=== PATIENT | female | born 1985 | race Caucasian/White ===

== ENCOUNTER 2016-12-15 13:49 | Inpatient (IN) | payer MEDICAID, OTHER ==
[~2016-12-15] VITALS: Ht 162.6 cm; Wt 71.2 kg
[2016-12-15] VITALS (13 sets, daily range): BP systolic 160–243; BP diastolic 89–148; PULSE 58–103; RESP 10–23; TEMP 97–99.1; O2SAT 93–100
--- NOTE | 2016-12-15 13:49 | NUR ---
BROUGHT IN BY ELMER Storey AND VINH SOSA, PLACED IN BED #5, TRIAGED. REPORT GIVEN TO FRANK
--- NOTE | 2016-12-15 13:50 | NUR ---
MD Gusamn at bedside.
--- NOTE | 2016-12-15 14:07 | NUR ---
Patient actively seizing at bedside, orders given to medicate for seizure control by MD Gusman.
[2016-12-15] MEDS ORDERED: LORazepam 2 MG/ML VIAL (FOR ER USE) ONE (14:12)
[2016-12-15] MEDS ORDERED: CARV12.548 PO (14:13)
[2016-12-15] MEDS ORDERED: PRED20TA PO (14:13)
[2016-12-15] MEDS ORDERED: CAT.1 PO (14:13)
[2016-12-15] MEDS ORDERED: CYTOXIN (14:13)
[2016-12-15] MEDS ORDERED: TRAM50TA92 PO (14:13)
[2016-12-15] MEDS ORDERED: FURO-149 PO (14:13)
[2016-12-15] MEDS ORDERED: LORazepam 2 MG/ML VIAL IVP ONE (14:15)
[2016-12-15] MEDS ORDERED: LORazepam 2 MG/ML VIAL (FOR ER USE) IVP ONE ×2 (14:15)
[2016-12-15 14:29] LABS: BASOPHILS # (AUTO) 0.1 K/uL (0.0-0.2); BASOPHILS % (AUTO) 0.8 % (0.0-2.0); EOSINOPHILS % (AUTO) 0.2 % (0.0-4.0); HEMATOCRIT 29.7 % (36-48); LYMPHOCYTES # (AUTO) 0.5 K/uL (1.0-5.5); LYMPHOCYTES % (AUTO) 5.3 % (20.5-51.5); MEAN CORPUSCULAR HEMOGLOBIN 34 pg (27-31); MEAN CORPUSCULAR HGB CONC 34 % (32-36); MEAN CORPUSCULAR VOLUME 99 fL (79.0-98.0); MONOCYTES # (AUTO) 0.2 K/uL (0.0-1.0); MONOCYTES % (AUTO) 2.1 % (1.7-9.3); NEUTROPHILS # (AUTO) 8.5 K/uL (1.8-7.7); NEUTROPHILS % (AUTO) 91.6 % (40.0-70.0); PLATELET COUNT (AUTO) 141 K/uL (130-430); RED BLOOD CELL COUNT(AUTO) 2.99 MIL/uL (4.2-6.2); RED CELL DISTRIBUTION WIDTH 15.1 % (9.0-15.0); WHITE BLOOD COUNT (AUTO) 9.3 K/uL (4.8-10.8)
--- NOTE | 2016-12-15 14:55 | NUR ---
Pt taken to CT scan via gurney, escorted by technical assistant, condition stable.
[2016-12-15 14:58] LABS: ANION GAP 16 (5-15); CALCIUM 9.2 mg/dL (8.4-11.0); CHLORIDE 98 mmol/L (98-107); GLUCOSE 210 mg/dL (70-99); POTASSIUM 4.9 mmol/L (3.5-5.1); SODIUM SERUM 137 mmol/L (136-145); UREA NITROGEN, BLOOD 52 mg/dL (8-21)
[2016-12-15 15:07] LABS: ALANINE AMINOTRANSFERASE 41 U/L (12-78); ASPARTATE AMINOTRANSFERASE 22 U/L (10-37); CREATININE 9.71 mg/dL (0.55-1.30); GFR AFRICAN AMERICAN 6 mL/min (>90); TOTAL BILIRUBIN 0.3 mg/dL (0.0-1.0)
[2016-12-15 15:08] LABS: ALBUMIN 3.6 g/dL (3.4-4.8); CARBAMAZEPINE (TEGRETOL) < 0 ug/mL (4-12); PHENYTOIN (DILANTIN) 0.9 ug/mL (10.0-20.0); TOTAL PROTEIN, SERUM 6.1 g/dL (6.4-8.3)
[2016-12-15 15:20] LABS: BARBITURATE, URINE NEGATIVE (NEG <=200); BENZODIAZEPINE, URINE NEGATIVE (NEG <=150); CANNABINOID, URINE NEGATIVE (NEG <=50); COCAINE, URINE NEGATIVE (NEG <=150); METHAMPHETAMINES SCREEN,URINE NEGATIVE (NEG <=500); OPIATE, URINE NEGATIVE (NEG <=100); PHENCYCLIDINE SCREEN,URINE NEGATIVE (NEG <=25); UR TRICYCLIC ANTIDEPRESSANTS NEGATIVE (NEG <=300); URINE AMPHETAMINE NEGATIVE (NEG <=500); URINE METHADONE NEGATIVE (NEG <=200); URINE OXYCODONE SCREEN NEGATIVE (NEG <=100); URINE PROPOXYPHENE SCREEN NEGATIVE (NEG <=300)
--- NOTE | 2016-12-15 15:58 | NUR ---
Pt reassessed sleeping resting comfortably arousable to verbal stimuli, MD Naseem MILLER made aware of pt B/P, orders given to medicate.
[2016-12-15] MEDS ORDERED: cloNIDine HCL 0.1 MG TABLET ONE (16:10)
[2016-12-15] MEDS ORDERED: cloNIDine HCL 0.1 MG TABLET PO ONE (16:15)
--- NOTE | 2016-12-15 16:21 | NUR ---
PT REASSESSED AFTER CLONIDINE 0.1MG PO GIVEN, MD MADE AWARE OF B/P.
--- NOTE | 2016-12-15 16:40 | NUR ---
Patient will be admitted to care of Bibi. Admitted to unit. Will go to room . Summary report printed. Report given to .
--- NOTE | 2016-12-15 17:00 | NUR ---
RECEIVED PT TO ICU BED 3 ALERT AND ORIENTED. PT STATES SHE DOESN'T FEEL GOOD AND HAS A HEADACHE. BP VERY ELEVATED 242/140'S. ROOM KEPT DARK. PT NAUSEATED. SR ON MONITOR RATE 70. LUNGS DIMINISHED BILATERALLY. 02 2L IN USE. HOB UP. NO AVILES. PULSES PALPABLE. NO EDEMA TO NOTED TO FEET. PT HAS A RIGHT CHEST PERMACATH AND STATES HER DIALYSIS DAYS ARE THURSDAY AND THURSDAY. PT HAS AN 18G IV TO LEFT AC AND SALINE LOCKED. CALL OUT TO DR PEREZ REGARDING BP.
--- NOTE | 2016-12-15 17:06 | NUR ---
CONSULT FOR DR. GRAY (DR. GONSALVES RESIDENT PROGRAMS ASSISTANT) CALLED SPOKE TO STEVENSON DIALED [phone]
--- NOTE | 2016-12-15 17:10 | NUR ---
DR PEREZ IN TO SEE PT. ORDERS LEFT. BP MEDS ORDERED.
--- NOTE | 2016-12-15 17:10 | NUR ---
CONSULT FOR DR. GALICIA CALLED SPOKE TO BRENDA DIALED [phone]
[2016-12-15] MEDS ORDERED: LORazepam 2 MG/ML VIAL IVP PRN ×2 (17:15→23:45)
[2016-12-15] MEDS ORDERED: LABETALOL 100 MG/ 20ML VIAL IVP ONE (17:15)
[2016-12-15] MEDS: hydrALAZINE HCL 20 MG/ML VIAL IVP PRN ×2 (17:34→22:00)
--- NOTE | 2016-12-15 17:34 | NUR ---
APRESOLINE IVP GIVEN FOR BP.
--- NOTE | 2016-12-15 17:37 | NUR ---
paged dr. stratton dialed [phone] spoke with nelson
--- NOTE | 2016-12-15 17:50 | NUR ---
PT VOMITED A SMALL AMT OF GREEN LIQUID. CALL OUT TO [facility] FOR NAUSEA MEDICATION.
--- NOTE | 2016-12-15 17:56 | NUR ---
SPOKE WITH DR JOHNSON. STAT DIALYSIS ORDERED. ORDER GIVEN TO BLACK TOP ROLLER. PT CONTINUES TO VOMIT AND C/O HEADACHE. STATES I DONT' FEEL GOOD. BP 125/100/ AFTER HYDRALAZINE GIVEN. DR GALICIA IN TO SEE PT.
--- NOTE | 2016-12-15 18:15 | NUR ---
TRANDATE GIVEN FOR BP. ALSO MEDICATEDF OR NAUSEA WITH ZOFRAN IVP. PT TRYING TO REST.
--- NOTE | 2016-12-15 18:30 | NUR ---
PT VOMITED AGAIN, A SMALL AMT OF GREEN LIQUID. DIALYSIS NURSE CALLED FOR INFORMATION. UNABLE TO TAKE CALL AND SHE HUNG UP AND DIDN'T CALL BACK.
[2016-12-15] MEDS: ONDANSETRON HCL 4 MG/2 ML VIAL IVP PRN (18:34)
--- NOTE | 2016-12-15 19:25 | NUR ---
UPON ENTERING THE ROOM PT NOTED TO BE HAVING A GRAND MAL SEIZURE WITH LEGS OVER THE SIDE OF THE BED, TEETH CLENCHED AND LIPS BLUE. 02 SATS 83% WITH 02 4L. PT KEPT SAFE DURING SEIZURE AND ATIVAN IVP GIVEN. [facility] CALLED AND REQUESTED TO FIND OUT HOW LONG IT WILL BE FOR THE DIALYSIS NURSE TO COME. UNKNOWN DURATION OF SEIZURE ACTIVITY.
--- NOTE | 2016-12-15 19:30 | NUR ---
REPORT GIVEN TO ONCOMING NURSE.
--- NOTE | 2016-12-15 19:44 | NUR ---
OPENING NOTE/TRANSFERRED TO ICU ROOM #7 Pt. and report received from day shift nurse. Pt. appeared to having seizure activity of unknown duration. Safety and seizure measures were maintained. Pt. transferred to ICU room #7 for closer monitoring. Pt.'s respirations are even and unlabored with visible chest rise and fall. IV site to right a/c 20g dry intact and saline locked. Pt. has right chest permacath, pending dialysis tonight. Safety and seizure measures in place. Call light within reach. Will continue to monitor. Addendum: 12/15/16 at 2302 by Joyce Amato RN OPENING NOTE/TRANSFERRED TO ICU ROOM #7 Pt. and report received from day shift nurse. Pt. appeared to having seizure activity of unknown duration. Safety and seizure measures were maintained. Pt. transferred to ICU room #7 for closer monitoring. Pt.'s respirations are even and unlabored with visible chest rise and fall. IV site to right a/c 18g dry intact and saline locked. Pt. has right chest permacath, pending dialysis tonight. Safety and seizure measures in place. Call light within reach. Will continue to monitor.
--- NOTE | 2016-12-15 20:24 | NUR ---
MRSA MRSA specimen from bilateral nares obtained and sent to the lab.
--- NOTE | 2016-12-15 20:25 | NUR ---
FAMILY AT BEDSIDE Pt.'s father, Dominik, and friend Torsten at bedside. Both deny any questions or concerns at this time. Encouraged family to use call light or come to the station for any concerns. Safety and seizure measures in place. Call light to right hand. Will continue to monitor.
[2016-12-15] MEDS: levETIRAcetam 500 MG in NS 100 ML IV SCH (20:37)
--- NOTE | 2016-12-15 20:53 | NUR ---
SEIZURE ACTIVITY Seizure activity noted that lasted roughly one minute, seizure and safety measures maintained. Due Keppra IV administered as ordered to right a/c 20g. Pt.'s fatherDominik and pt.'s father's significant other, Torsten at bedside with no other questions at this time. Hemodialysis consent obtained from pt.'s father. Safety and seizure measures in place. Call light placed to right hand. Encouraged pt. and family to use call light for any needs. Will continue to monitor. Addendum: 12/15/16 at 2303 by Joyce Amato RN SEIZURE ACTIVITY Seizure activity noted that lasted roughly one minute, seizure and safety measures maintained. Due Keppra IV administered as ordered to right a/c 18g. Pt.'s fatherDominik and pt.'s father's significant other, Torsten at bedside with no other questions at this time. Hemodialysis consent obtained from pt.'s father. Safety and seizure measures in place. Call light placed to right hand. Encouraged pt. and family to use call light for any needs. Will continue to monitor.
--- NOTE | 2016-12-15 21:23 | NUR ---
FAMILY Pt.'s father, Dominik stated he is going to go outside to catch some fresh air and to give him a call when dialysis nurse. Denies any other concerns at this time.
--- NOTE | 2016-12-15 21:25 | NUR ---
ROUNDS Pt. is resting quietly in bed with no s/s of acute distress. No seizure activity noted at this time. Safety and seizure measures in place. Call light to right hand. Will continue to monitor.
--- NOTE | 2016-12-15 21:36 | NUR ---
FAMILY NOTIFIED Pt.'s father, Dominik was notified, as requested, that dialysis nurse, Zaida, is here.
--- NOTE | 2016-12-15 22:08 | NUR ---
APRESOLINE Apresoline IV administered as ordered for BP of 170/98. Dialysis nurse at bedside. Safety and seizure measures in place. No s/s of seizure activity noted at this time. Will continue to monitor.
--- NOTE | 2016-12-15 22:30 | NUR ---
DR. ALEX Montgomery was paged as requested by dialysis nurse, Zaida Simmons RN. She spoke to Dr. Montgomery with orders received.
--- NOTE | 2016-12-15 22:31 | NUR ---
CHILLS Pt. c/o chills; temperature 98.3F. Will continue to monitor.
--- NOTE | 2016-12-15 22:37 | NUR ---
FATHER AT BEDSIDE Pt.'s father, Dominik, at bedside speaking to dialysis nurse.
--- NOTE | 2016-12-15 22:51 | NUR ---
ORAL TEMPERATURE Pt.'s current oral temperature 99.1F. Will continue to monitor.
--- NOTE | 2016-12-15 23:42 | NUR ---
SPOKE TO DR. PEREZ Reported pt.'s verbalization of "10/10" pain "everywhere"; pt.'s current blood pressure of 172/90 after apresoline given over an hour ago; pt.'s allergies to acetaminophen and hydrocodone; and pt.'s seizure activity. Dr. Perez ordered Morphine 2mg IVP to be given every four hours as needed for severe (7-10) pain, Ativan 1mg IVP to be given every one hour as needed for seizure/agitation/anxiety. Dr. Perez asked if pt. was dialyzed; I reported dialysis nurse is at the bedside with no plans to remove fluid. Will carry out orders.
[2016-12-15] MEDS: MORPHINE 2 MG/ML INJ. SYRINGE IVP PRN (23:55)
--- NOTE | 2016-12-15 23:58 | NUR ---
MORPHINE Pt. c/o "06/30" pain "everywhere"; Morphine 2mg IVP was given as ordered for severe pain. Educated pt. regarding medication and s/e. Pt. verbalized understanding. Safety and seizure measures in place. No s/s of seizure activity noted at this time. Call light within reach. Dialysis nurse at bedside. Will continue to monitor.
[2016-12-16] VITALS (17 sets, daily range): BP systolic 136–196; BP diastolic 67–120; PULSE 68–120; RESP 11–20; TEMP 98.5–100; O2SAT 94–100
--- NOTE | 2016-12-16 01:43 | NUR ---
DIALYSIS COMPLETE Dialysis complete; OBIE Cerda, dialysis nurse stated filtration was done only and for pt. to be reassessed tomorrow per Dr. Montgomery.
[2016-12-16] MEDS: hydrALAZINE HCL 20 MG/ML VIAL IVP PRN ×3 (01:48→13:24)
[2016-12-16] MEDS: ONDANSETRON HCL 4 MG/2 ML VIAL IVP PRN (01:52)
--- NOTE | 2016-12-16 01:55 | NUR ---
APRESOLINE AND ZOFRAN Apresoline IVP was given as ordered for elevated BP. Zofran IVP was given for pt.'s c/o of nausea. See EMAR. Educated pt. regarding medication and s/e. Pt. verbalized understanding. Safety and seizure measures in place. No s/s of seizure activity noted at this time. Call light to right hand. Will continue to monitor.
--- NOTE | 2016-12-16 02:27 | NUR ---
ATIVAN Ativan IVP was given as ordered. Educated pt. regarding medication and s/e. Pt. verbalized understanding. Safety and seizure measures in place. No s/s of seizure activity noted at this time. Call light within reach. Will continue to monitor.
--- NOTE | 2016-12-16 03:16 | NUR ---
CHG BATH CHG bath was given. Skin and vinay care performed. All linen changed due to soiling. Zguard applied to buttocks to prevent skin breakdown. Pt. tolerated well. Safety and seizure measures in place. No s/s of seizure activity noted at this time. Will continue to monitor.
--- NOTE | 2016-12-16 04:14 | NUR ---
ROUNDS/DAILY WEIGHT Pt. is resting quietly in bed with no s/s of acute distress at this time. Safety and seizure measures are in place with no s/s of seizure activity at this time. Daily weight done. Bed alarm on. Offered pt. water or snack but pt. is refusing and states she does not want anything to eat or drink at this time. Encouraged pt. to use call light for any needs. Pt. verbalized understanding. Will continue to monitor.
[2016-12-16] MEDS: MORPHINE 2 MG/ML INJ. SYRINGE IVP PRN (04:23)
--- NOTE | 2016-12-16 04:41 | NUR ---
PAIN/LEADS FIXED/IV SITE REDRESSED Late entry due to pt. care. Pt. was awake with c/o "10/10" pain. When asked where, she stated "it hurts everywhere." Morphine IVP was given as ordered PRN for severe pain. See EMAR. Educated pt. regarding medication and s/e. Pt. verbalized understanding. Tele leads fixed. IV site was redressed and kerlix was applied due to leaking but remains patent with good blood return noted. Safety and seizure measures in place. No s/s of seizure activity noted at this time. Encouraged pt. to use call light for needs. Call light to right hand side. Bed alarm on. Will continue to monitor.
--- NOTE | 2016-12-16 04:56 | NUR ---
ROUNDS Pt. is resting quietly in bed with no s/s of acute distress at this time. Respirations are even and unlabored with visible chest rise and fall. Safety and seizure precautions in place. No s/s of seizure activity noted at this time. Bed alarm on. Will continue to monitor.
--- NOTE | 2016-12-16 05:50 | NUR ---
APRESOLINE/ORAL CARE Apresoline IVP given as ordered for BP of 176/74. See EMAR. Educated pt. regarding medication. Pt. verbalized understanding. Oral care done. Pt. tolerated well. Pt. refusing need to urinate at this time. Safety and seizure precautions in place. No s/s of seizure activity noted at this time. Bed alarm on. Call light within reach. Will continue to monitor.
--- NOTE | 2016-12-16 06:04 | NUR ---
WATER Water was given as requested by pt. Pt. tolerated well.
--- NOTE | 2016-12-16 06:22 | NUR ---
CLOSING NOTES Pt. is resting quietly in bed with no s/s of acute distress. Respirations are even and unlabored with visible chest rise and fall. All needs met throughout shift. Right chest permacath dressing is CDI. IV site to left a/c 20g is CDI and saline locked. Safety, fall, and seizure precautions maintained throughout shift. Call light within reach. Bed alarm on. Will endorse care to oncoming day shift nurse.
--- NOTE | 2016-12-16 07:09 | NUR ---
REPORT GIVEN TO DAY SHIFT NURSE SBAR bedside report was given to day shift nurse. Pt. is stable with no s/s of acute distress.
--- NOTE | 2016-12-16 07:20 | NUR ---
AM ROUNDS PATIENT RESTING IN BED, AWAKE, ALERT AND ORIENTED X1-2, REORIENTED TO PLACE AND TIME, DENIES PAIN, ASSESSMENT COMPLETE, NO SIGNS OF DISTRESS, SEIZURE PRECAUTIONS IN PLACE AT THIS TIME, EDUCATED WAREHOUSING TECHNICIAN LIGHT SYSTEM AND TO CALL FOR ANY ASSISTANCE, PATIENT VERBALIZED UNDERSTANDING AT THIS TIME, BED IN LOWEST POSITION, THREE SIDE RAILS UP, WILL CONTINUE TO MONITOR.
--- NOTE | 2016-12-16 08:10 | NUR ---
DR PEREZ PAGED REGARDING CONTINUING HIGH BLOOD PRESSURE AFTER MEDICATION ADMINISTRATION, NEED FOR DVT PROPHYLAXIS AND IF HE WANTS TO ORDER LABS, DR PEREZ STATED TO ORDER CARDIOLOGY CONSULT FOR DR NIEVES, SCD'S FOR DVT PROPHYLAXIS AND CBC AND CMP TODAY, WILL FOLLOW UP.
--- NOTE | 2016-12-16 08:14 | NUR ---
consult for dr. li called spoke to casi dialed [phone]
--- NOTE | 2016-12-16 08:17 | NUR ---
FAMILY AT BEDSIDE UPDATED WITH PLAN OF CARE
[2016-12-16 08:37] LABS: BASOPHILS % (AUTO) 0.4 % (0.0-2.0); EOSINOPHILS % (AUTO) 0.1 % (0.0-4.0); HEMATOCRIT 28.8 % (36-48); HEMOGLOBIN 9.7 g/dL (12.0-16.0); LYMPHOCYTES # (AUTO) 1.2 K/uL (1.0-5.5); LYMPHOCYTES % (AUTO) 10.3 % (20.5-51.5); MEAN CORPUSCULAR HEMOGLOBIN 34 pg (27-31); MEAN CORPUSCULAR HGB CONC 34 % (32-36); MEAN CORPUSCULAR VOLUME 100 fL (79.0-98.0); MONOCYTES # (AUTO) 0.8 K/uL (0.0-1.0); MONOCYTES % (AUTO) 6.7 % (1.7-9.3); NEUTROPHILS # (AUTO) 9.9 K/uL (1.8-7.7); NEUTROPHILS % (AUTO) 82.5 % (40.0-70.0); PLATELET COUNT (AUTO) 134 K/uL (130-430); RED BLOOD CELL COUNT(AUTO) 2.88 MIL/uL (4.2-6.2); RED CELL DISTRIBUTION WIDTH 15.4 % (9.0-15.0); WHITE BLOOD COUNT (AUTO) 11.9 K/uL (4.8-10.8)
[2016-12-16 08:51] LABS: CALCIUM 8.2 mg/dL (8.4-11.0); CREATININE 5.23 mg/dL (0.55-1.30); POTASSIUM 3.9 mmol/L (3.5-5.1)
[2016-12-16 08:56] LABS: ALBUMIN 3.1 g/dL (3.4-4.8); TOTAL BILIRUBIN 0.4 mg/dL (0.0-1.0); TOTAL PROTEIN, SERUM 5.4 g/dL (6.4-8.3)
--- NOTE | 2016-12-16 09:00 | NUR ---
DR NIEVES ASSESSING THE PATIENT AT THE BEDSIDE, WILL FOLLOW UP WITH ANY NEW ORDERS.
[2016-12-16] MEDS: levETIRAcetam 500 MG in NS 100 ML IV SCH ×2 (09:15→20:29)
--- NOTE | 2016-12-16 09:24 | NUR ---
DR PEREZ AT THE BEDSIDE AT THIS TIME, ORDERED FOR TRANSFER TO TELEMETRY, WILL FOLLOW UP.
--- NOTE | 2016-12-16 09:27 | NUR ---
Nutrition Update Mic Scale 16 noted. Pt admitted for renal failure. Diet: regular, renal standard BMI: 26.9 kg/m2 RD to follow per nutrition care standards.
[2016-12-16] MEDS ORDERED: amLODIPine BESYLATE 10 MG TABLET PO ONE (09:45)
[2016-12-16] MEDS ORDERED: CARVEDILOL 12.5 MG TABLET (COREG) PO ONE (09:45)
--- NOTE | 2016-12-16 11:38 | NUR ---
RN ROUNDS PATIENT RESTING IN BED, EYES CLOSED, BREATHING IS EVEN AND UNLABORED, NO SIGNS OF DISTRESS, NO SIGNS OF PAIN, BED IN LOWEST POSITION, THREE SIDE RAILS UP, SEIZURE, FALL AND ASPIRATION PRECAUTIONS IN PLACE, PATIENT'S FATHER IS AT THE BEDSIDE, WILL CONTINUE TO MONITOR.
--- NOTE | 2016-12-16 12:00 | NUR ---
RN ROUNDS PATIENT ASKING FOR ASSISTANCE TO THE RESTROOM, PATIENT TOLERATED WELL WAS ABLE TO VOID, GAIT IS UNSTEADY, PATIENT NEEDS ASSISTANCE, CHEST X RAY ALSO COMPLETE AT THIS TIME, PATIENT WILL BE TRANSFERRED TODAY TO A TELEMETRY BED, WILL FOLLOW UP, HYGIENE SUPPLIES GIVEN TO THE PATIENT AND LUNCH TRAY PLACED IN FRONT OF THE PATIENT, BED IN LOWEST POSITION, THREE SIDE RAILS UP, FALL, SEIZURE AND ASPIRATION PRECAUTIONS IN PLACE, WILL CONTINUE TO MONITOR.
--- NOTE | 2016-12-16 13:05 | NUR ---
TRANSFER TO TELEMETRY VIA WHEELCHAIR, ACCOMPANIED BY NURSE AND PATIENT'S PARENTS, PLACED IN ROOM 129A, STABLE CONDITION, ORIENTED TO THE ROOM, UNIT AND CALL LIGHT SYSTEM, BED IN LOWEST POSITION, THREE SIDE RAILS UP, BED ALARM ON, FALL, ASPIRATION AND SEIZURE PRECAUTIONS IN PLACE, CALL LIGHT NEXT TO THE PATIENT'S HAND. Addendum: 12/16/16 at 1529 by Hubert Vasquez RN WRONG TIME, CORRECT TIME 1505.
--- NOTE | 2016-12-16 13:40 | NUR ---
RN EILEEN HANNON RN, CHARGE NURSE AT THE BEDSIDE AT THIS TIME, ASSISTING THE PATIENT AND SPEAKING WITH THE FAMILY, PRN BLOOD PRESSURE WAS GIVEN TO THE PATIENT AT THIS TIME, WILL CONTINUE TO MONITOR, BED IN LOWEST POSITION, THREE SIDE RAILS UP, SEIZURE, ASPIRATION AND FALL PRECAUTIONS IN PLACE.
--- NOTE | 2016-12-16 14:05 | NUR ---
REPORTED SEIZURE ACTIVITY TO DR PEREZ TO SEE IF HE STILL WANTED TO TRANSFER PT TO TELE AND HE SAID YES.
--- NOTE | 2016-12-16 14:05 | NUR ---
PT CAME OT NURSES STATION TO REPORT THAT PT WAS HAVING A SEIZURE. UPON ENTERING THE ROOM NO SEIZURE NOTED. PTS FATHER SAID SHE HAD 3 EPISODES OF ABOUT 10 SECONDS DURATION ABOUT 10 SECONDS APART OF TWITCHING OF HER RIGHT SHOULDER. PT AROUSABLE . ATIVAN 1 MG IVP GIVEN. Addendum: 12/16/16 at 1444 by Megan Catalan RN PTS TEMPT 100.0. DR PEREZ AWARE BUT NOT MUCH HE CAN GIVE DUE TO ALLERGIES AND RENAL FAILURE DIAGNOSIS HE SAID.
--- NOTE | 2016-12-16 14:15 | NUR ---
IV RE-INSERTION: Complaining of pain to IV site. Restarted on Left Hand 22 G. Successful after 2 attempts, Saline Lock. Will observe for any signs of infiltration.
--- NOTE | 2016-12-16 15:36 | NUR ---
EUSEBIA SUN Received msg from Susan @ [facility], she is assigned [facility] [phone], fax [phone].
--- NOTE | 2016-12-16 16:06 | NUR ---
RN ROUNDS PATIENT RESTING IN BED, EYES CLOSED, BREATHING IS EVEN AND UNLABORED, NO SIGNS OF DISTRESS, PATIENT'S MOTHER IS AT THE BEDSIDE AT THIS TIME, BED IN LOWEST POSITION,THREE SIDE RAILS UP, BED ALARM ON, SEIZURE, FALL AND ASPIRATION PRECAUTIONS IN PLACE, CALL LIGHT NEXT TO THE PATIENT'S HAND.
--- NOTE | 2016-12-16 20:00 | NUR ---
PM Shift Assessment Received patient lying in bed, AAO x4, lethargic but easily arousable, no acute distress noted, family is at the bedside. Assessment complete, no complain of pain at this time. Right chest noted with permacath, dressing in place, clean dry and intact. IV noted to left hand, saline locked at this time, flushes well, no redness or swelling noted to IV site. SCD's noted to BLE. Seizure pads noted to bilateral side rails for safety. Education provided to call for assistance if she needs to get out of bed, she verbalized understanding and is able to provide correct return demonstration of call light use. Patient is verbally able to make needs known and encouraged to do so. Call light is within reach, all fall and safety precautions in place, will continue to monitor for change in patient status.
[2016-12-16] MEDS: CARVEDILOL 12.5 MG TABLET (COREG) PO SCH (20:30)
--- NOTE | 2016-12-16 22:17 | NUR ---
RN Rounds Patient is sleeping but easily arousable, no acute distress noted. Scheduled medications were administered earlier per MD order. Warm blanket provided and patient made comfortable in bed. Call light is within reach, all fall and safety precautions in place, will continue to monitor.
--- NOTE | 2016-12-17 00:21 | NUR ---
RN Rounds Patient is sleeping but easily arousable, no acute distress noted. No seizure activity noted at this time. Call light is within reach, all fall and safety precautions in place, will continue to monitor.
[2016-12-17 00:50] VITALS: BP 154/96; PULSE 89; RESP 18; TEMP 98.4; O2SAT 95
[2016-12-17 01:00] VITALS: BP 146/96
--- NOTE | 2016-12-17 02:35 | NUR ---
RN Rounds Patient is sleeping, respirations are even and unlabored, no acute distress noted. Call light is within reach, all fall and safety precautions in place, will continue to monitor.
--- NOTE | 2016-12-17 04:43 | NUR ---
RN Rounds Patient is resting quietly in bed, no acute distress noted. Blood pressure noted to be elevated, PRN medication administered per MD order, will reassess. Encouraged patient to call with all needs, she verbalized understanding. Call light is within reach, all fall and safety precautions in place, will continue to monitor.
[2016-12-17 04:52] VITALS: BP 155/90; PULSE 96; RESP 18; TEMP 98; O2SAT 93
[2016-12-17] MEDS: hydrALAZINE HCL 20 MG/ML VIAL IVP PRN (04:56)
--- NOTE | 2016-12-17 06:59 | NUR ---
Closing Notes Patient is resting quietly in bed, no acute distress noted. No seizure activity noted throughout shift. Patient is stable, all needs met throughout shift. Will continue to monitor until endorsed to AM nurse at bedside.
--- NOTE | 2016-12-17 07:50 | NUR ---
INITIAL NOTE Received patient lying in bed, Patient is alert and oreinted x 4, no signs of distress noted at this time, patient has no complaints of pain at this time, assessment complete, patient has a right chest Permacath, dressing is clean dry and intact. patient has a IV on left hand currently saline lock. Seizure pads are currently on side rails, instructed patient to call if assistance is needed, patient verbalized understanding, bed in lowest position, bed alarm on, two side rails up , call salgado left in patient's hand, fall and seizure precautions in place, will continue to monitor patient.
[2016-12-17 08:00] VITALS: BP 133/103; PULSE 113; RESP 18; TEMP 99.1; O2SAT 96
[2016-12-17] MEDS ORDERED: amLODIPine BESYLATE 10 MG TABLET PO SCH (09:00)
[2016-12-17] MEDS ORDERED: hydrALAZINE HCL 25 MG TABLET PO SCH (09:00)
[2016-12-17] MEDS ORDERED: ENOXAPARIN SODIUM 40 MG/0.4 ML SYRINGE SUBCUT SCH (09:00)
[2016-12-17] MEDS: CARVEDILOL 12.5 MG TABLET (COREG) PO SCH (09:30)
[2016-12-17] MEDS: levETIRAcetam 500 MG in NS 100 ML IV SCH (09:34)
--- NOTE | 2016-12-17 09:40 | NUR ---
MEDICATIONS PATIENT GIVEN MORNING MEDICATIONS, EDUCATED PATIENT AND FAMILY MEMBERS OF POTENTIAL SIDE EFFECTS OF MEDICATIONS, PATIENT AND FAMILY MEMBERS VERBALIZED UNDERSTANDING, CALL MIDDLETON LEFT IN PATIENT'S HAND, BED IN LOWEST POSITION, HOB ELEVATED, SIDE RAILS UP, BED ALARM ON, FALL AND SEIZURE PRECAUTIONS IN PLACE, WILL CONTINUE TO MONITOR PATIENT.
--- NOTE | 2016-12-17 11:45 | NUR ---
RN ROUNDS PATIENT IS RESTING IN BED WITH EYES CLOSE, MOTHER AT BEDSIDE, NO SIGNS OF DISTRESS, NO OTHER NEEDS AT THIS TIME, CALL MIDDLETON LEFT WITHIN REACH OF PATIENT'S HAND, BED IN LOWEST POSITION, SIDE RAILS UP, BED ALARM ON, FALL AND SEIZURE PRECAUTIONS IN PLACE, WILL CONTINUE TO MONITOR PATIENT.
[2016-12-17 12:00] VITALS: BP 157/92; PULSE 102; RESP 21; TEMP 97.2; O2SAT 97
--- NOTE | 2016-12-17 13:00 | NUR ---
RN ROUNDS PATIENT IS CURRENTLY RESTING IN BED WITH EYES CLOSED, FAMILY AT BEDSIDE, NO SIGNS OF DISTRESS, CALL MIDDLETON WITHIN REACH OF PATIENT'S HAND, BED ALARM ON, FALL AND SEIZURE PRECAUTIONS IN PLACE, WILL CONTINUE TO MONITOR PATIENT.
--- NOTE | 2016-12-17 13:50 | NUR ---
DR ANDERSON CALLED DR. ANDERSON REGARDING PATIENT NEEDING TO BE CLEARED FROM NEPHRO STANDPOINT FOR DISCHARGE, DOCTOR STATED THAT PATIENT IS CLEARED TO GO, JUST CONTINUE SCHEDULED DIALYSIS DATES, WILL INFORM PATIENT
[2016-12-17 13:57] VITALS: BP 157/97; PULSE 102; RESP 21; TEMP 97.2
--- NOTE | 2016-12-17 14:35 | NUR ---
RN ROUNDS PATIENT IS CURRENTLY RESTING IN BED, NO SIGNS OF DISTRESS, NO COMPLAINTS OF PAIN, FAMILY IS WAITING FOR FATHER TO PICK THEM UP TO BE DISCHARGED, NO OTHER NEEDS AT THIS TIME, CALL MIDDLETON WITHIN REACH OF PATIENT'S HAND, BED ALARM ON, FALL AND SEIZURE PRECAUTIONS IN PLACE, WILL CONTINUE TO MONITOR PATIENT.
[2016-12-17 15:23] LABS: HEPATITIS A AB, IgM Negative (Negative); HEPATITIS B CORE AB, IgM Negative (Negative); HEPATITIS B SURFACE AG Negative (Negative)
--- NOTE | 2016-12-17 15:35 | NUR ---
D/C Patient Patient given medication reconciliation form and D/C instructions. Exit Care provided. Patient verbalized understanding. MD discussed with patient the results and treatment provided. Ambulatory with steady gait for discharge to home. Patient in stable condition, ID band removed. IV catheter removed, intact and dressing applied, no active bleeding. Rx of Keppra given. Patient educated on pain management. All belongings sent with patient.
== END 2016-12-17 15:35 | disposition home or self-care (01) | DRG 53 ==
LOC: SED 13:49 → SIC 16:23 → STU 12-16 14:50 → SMU 12-17 05:07
PROVIDERS: ADMIT Internal Medicine Hospice and Palliative Medicine; ATTEND Internal Medicine Hospice and Palliative Medicine
PROC: 5A1D00Z (ICD-10-PCS; principal; 2016-12-15)
DX: G40.409 Other generalized epilepsy and epileptic syndromes, not intractable, without status epilepticus (principal); N18.6 End stage renal disease; I12.0 Hypertensive chronic kidney disease with stage 5 chronic kidney disease or end stage renal disease; I16.1 Hypertensive emergency; D63.1 Anemia in chronic kidney disease; G43.909 Migraine, unspecified, not intractable, without status migrainosus; Z82.49 Family history of ischemic heart disease and other diseases of the circulatory system; Z99.2 Dependence on renal dialysis; Z79.899 Other long term (current) drug therapy
CPT/HCPCS: 36415; 70450-TC; 71010; 80053; 80074; 80156-TC; 80184-TC; 80185-TC; 80307; 81025; 83735-TC; 85025; 87081; 90935; 93005; 93306; 96374; 99285; J0360; J1650; J1953; J2060; J2270; J2405; J3490; J7030; J7050

== ENCOUNTER 2016-12-27 19:40 | Inpatient (IN) | payer MEDICAID ==
[~2016-12-27] VITALS: Ht 160 cm; Wt 48.3 kg
[~2016-12-27 19:40] MED LIST: CARV12.548 PO; CAT.1 PO; CYTOXIN; FURO-149 PO; PRED20TA PO; TRAM50TA92 PO
[2016-12-27 20:11] VITALS: BP 167/125; PULSE 105; RESP 14; TEMP 98.9; O2SAT 100
--- NOTE | 2016-12-27 20:20 | NUR ---
pt. to room 1 assumed pt. care
--- NOTE | 2016-12-27 20:22 | NUR ---
Pt. to ER AAOx4 c/o headache 06/30, as per pt. dhe got home from dialysis this evening, when she got home felt sick and nausea and started headache 06/30, denies vomiting, states that she has not been feeling good after her dialysis, denies sob, denies cp, follows commands, clear speech
--- NOTE | 2016-12-27 20:25 | NUR ---
dr. dewey at bed side examining the pt.
[2016-12-27] MEDS ORDERED: METOPROLOL TARTRATE 5 MG/5 ML VIAL IVP ONE (20:30)
--- NOTE | 2016-12-27 20:34 | NUR ---
as per MD lane the Lopresser
[2016-12-27] MEDS ORDERED: DIPHENHYDRAMINE INJ 50 MG/ML VIAL IVP ONE (20:45)
[2016-12-27] MEDS ORDERED: ONDANSETRON HCL 4 MG/2 ML VIAL IVP ONE (20:45)
[2016-12-27] MEDS ORDERED: MORPHINE 4 MG/ML INJ. SYRINGE IVP ONE ×2 (20:45→22:00)
[2016-12-27 20:59] LABS: EOSINOPHILS % (AUTO) 0.1 % (0.0-4.0); HEMOGLOBIN 9.2 g/dL (12.0-16.0); MEAN CORPUSCULAR HEMOGLOBIN 33 pg (27-31)
[2016-12-27 21:02] LABS: CALCIUM 8.7 mg/dL (8.4-11.0); CHLORIDE 99 mmol/L (98-107); GLUCOSE 119 mg/dL (70-99); POTASSIUM 4.4 mmol/L (3.5-5.1); SODIUM SERUM 134 mmol/L (136-145)
[2016-12-27 21:03] LABS: CREATININE 5.83 mg/dL (0.55-1.30); GFR AFRICAN AMERICAN 11 mL/min (>90); UREA NITROGEN, BLOOD 24 mg/dL (8-21)
[2016-12-27 21:04] LABS: ANION GAP < 3 (5-15); PROTHROMBIN TIME 10.8 SECS (9.5-12.5)
[2016-12-27 21:08] LABS: BASOPHILS # (AUTO) 0.1 K/uL (0.0-0.2); BASOPHILS % (AUTO) 0.5 % (0.0-2.0); LYMPHOCYTES # (AUTO) 0.6 K/uL (1.0-5.5); LYMPHOCYTES % (AUTO) 4.8 % (20.5-51.5); MEAN CORPUSCULAR HGB CONC 33 % (32-36); MEAN CORPUSCULAR VOLUME 100 fL (79.0-98.0); MONOCYTES # (AUTO) 0.6 K/uL (0.0-1.0); MONOCYTES % (AUTO) 4.6 % (1.7-9.3); NEUTROPHILS # (AUTO) 11.1 K/uL (1.8-7.7); PLATELET COUNT (AUTO) 185 K/uL (130-430); RED BLOOD CELL COUNT(AUTO) 2.79 MIL/uL (4.2-6.2); RED CELL DISTRIBUTION WIDTH 15.4 % (9.0-15.0); WHITE BLOOD COUNT (AUTO) 12.4 K/uL (4.8-10.8)
--- NOTE | 2016-12-27 21:27 | NUR ---
pt. blood pressure 163/115 notified orders received for lopressor 5ml. pt. given lopressor tolerated well
[2016-12-27 21:28] LABS: ALANINE AMINOTRANSFERASE 53 U/L (12-78); ALBUMIN 3.8 g/dL (3.4-4.8); ASPARTATE AMINOTRANSFERASE 24 U/L (10-37); TOTAL BILIRUBIN 0.5 mg/dL (0.0-1.0); TOTAL PROTEIN, SERUM 6.5 g/dL (6.4-8.3)
--- NOTE | 2016-12-27 22:04 | NUR ---
bp at 166/111 MD notified
[2016-12-27] MEDS ORDERED: DILTIAZEM HCL 25 MG/5 ML VIAL IVP ONE (22:45)
--- NOTE | 2016-12-27 23:10 | NUR ---
pt. was given cardizem as per MD orders BP at this time 164/108, MD notified Pt. states headache has gone down to 510
[2016-12-27] MEDS ORDERED: AMLO5TAB92 PO (23:11)
[2016-12-27] MEDS ORDERED: FOLI-43 PO (23:12)
[2016-12-27] MEDS ORDERED: CALC667T5 PO (23:12)
[2016-12-27] MEDS ORDERED: FURO-149 PO (23:14)
[2016-12-27] MEDS ORDERED: FAMO20TA98 PO (23:14)
[2016-12-27] MEDS ORDERED: MAGN250T31 PO (23:14)
[2016-12-27] MEDS ORDERED: NEPH PO (23:15)
--- NOTE | 2016-12-27 23:15 | NUR ---
MD Ha stated pt is not sepsis, sepsis protocol will not be activated
[2016-12-27 23:19] LABS: BILIRUBIN,URINE NEGATIVE (NEGATIVE); BLOOD, URINE 3+ (NEGATIVE); CLARITY/URINE HAZY (CLEAR); COLOR,URINE YELLOW (YELLOW); GLUCOSE,URINE NEGATIVE (NEGATIVE); KETONES,URINE NEGATIVE (NEGATIVE); LEUKOCYTE ESTERASE ,URINE NEGATIVE (NEGATIVE); NITRITE, URINE NEGATIVE (NEGATIVE); PH,URINE 8.5 (5.0-8.0); PROTEIN URINE 3+ (NEGATIVE); UROBILINOGEN,URINE 0.2 (0.2-1.0)
[2016-12-27] MEDS ORDERED: LABETALOL HCL 200 MG in NS 250 ML IV ONE (23:45)
[2016-12-27 23:47] LABS: BACTERIA,URINE FEW /HPF (None Seen); MUCUS,URINE None Seen /LPF (None Seen); RBC,URINE 80-100 /HPF (0-3)
[2016-12-28] VITALS (7 sets, daily range): BP systolic 133–194; BP diastolic 87–114; PULSE 80–96; RESP 12–20; TEMP 97.8–98.8; O2SAT 93–97
[2016-12-28] MEDS ORDERED: ONDANSETRON HCL 4 MG/2 ML VIAL IVP PRN
--- NOTE | 2016-12-28 00:07 | NUR ---
Medication reconciliation completed with information provided by patient. Any prior medication reconciliation on file was reviewed and corrected.
[2016-12-28] MEDS ORDERED: cloNIDine HCL 0.1 MG TABLET PO PRN (00:15)
--- NOTE | 2016-12-28 00:20 | NUR ---
Patient will be admitted to care of . Admitted to telemetery unit. Will go to room 102A. Belongings list completed. Summary report printed. Report given to Leslie RAGLANDcost report clerk to 102A via ACLS protocol. 2 Licensed nurse present. IV present no signs or symptoms of infiltration.
--- NOTE | 2016-12-28 00:24 | NUR ---
ADMISSION NOTES; -Just arrived from ER dept via a gurney brought in by Simon VALLES Rn to room 102-A, dx HTN Urgent inpt telemetry. Pt is a/ox4,resting in bed. Pt denies any chest pain,pain,sob,n&V, or any acute distress. Saline elvin of rt a/c #24,patent after flushed w/ NS,no s/s any infiltration noted. Lung sounds clear throughout all lobes. Abdomen soft & nondistended,BS present. Skin intact. Portacath-drsg cdi. Places a telemetry box show sinus rhythm. Haja pedis pulses normal and present. Haja ankles and feet nonpitting edema. Discussed poc,all safety measures, pain mgmt,or if experiencing s/s any headache, to use call light to inform use, pt verbalized needs. All safety measures in place. Call light /win reach. Will continue to monitor pt. Addendum: 12/28/16 at 0250 by Ginette Eid RN ADDITIONAL NOTES; REGARDING PT REFUSED TO PUT BED ALARM ON. EVEN AFTER EXPLAINING THE RISKS AND BENEFITS OF BED ALARM SYSTEM TO TURN ON. PT STATED, ''I DON'T WANT THE BED ALARM ON, IT'S ANNOYING.'' INSTRUCTED PT TO USE CALL LIGHT WHENEVER NEEDS TO USE BATHROOM, PT VERBALIZED NEEDS AND ORIENTS TO CALL LIGHT.
--- NOTE | 2016-12-28 00:24 | NUR ---
Admission Note Received patient from ER with diagnosis of HYPERTENSIVE URGENCY. Initial Plan of Care discussed-patient verbalized understanding. Family at bedside. Oriented to room 102A, call light, pain management and safety.
[2016-12-28] MEDS: hydrALAZINE HCL 20 MG/ML VIAL IVP PRN ×3 (00:55→09:07)
--- NOTE | 2016-12-28 00:55 | NUR ---
ELEVATED BP -Gave Apresoline 10mg IVP for bp 184/112,93,t5bpz=51% r/a. Pt denies any pain,sob,or any acute distress. All safety measures in place. Call light w/in reach. Continue to monitor pt.
--- NOTE | 2016-12-28 01:09 | NUR ---
BP 165/101,93 AFTER ADMINISTERED APRESOLINE 10MG IVP. -Pt is hungry, gave sandwich, 2x of 4 oz cranberry juice, and fruit jello cup. Continue to monitor pt.
--- NOTE | 2016-12-28 02:20 | NUR ---
ELEVATED BP -Pt is c/o headache, took OA=776/103. Gave Clonidine 0.1mg po for bp 166/103,85.Will retake bp w/in hr. Call light w/in reach. Continue to monitor pt.
--- NOTE | 2016-12-28 04:34 | NUR ---
ELEVATED BP -Pt is c/o headache, took OG=100/106,87,18,98.8,02SAT=95. Gave Apresoline 10mg IVP .Will retake bp w/in 30 mins. Call light w/in reach. Continue to monitor pt. Addendum: 12/28/16 at 0715 by Ginette Eid RN ADDITIONAL NOTES; RETOOK BP AFTER 15 MINS, EH=103/102, 94.
--- NOTE | 2016-12-28 04:45 | NUR ---
NEW IV SITE INSERTION -JACEK INSERTED NEW IV SITE OF LEFT A/C #22,PATENT,ATTEMPTED X1, NO S/S ANY INFILTRATION AFTER FLUSHED W/ NS,SECURES WITH TAPE, DRSG CDI.
--- NOTE | 2016-12-28 05:18 | NUR ---
MIGRAINE HEADACHE -Pt is c/o migraine headache sharp 10 out 10. Will page now.
--- NOTE | 2016-12-28 05:22 | NUR ---
paged paged for Dr Lenz, dialed . s/w Slava.
[2016-12-28] MEDS ORDERED: MORPHINE 2 MG/ML INJ. SYRINGE IVP ONE ×2 (05:45→07:00)
--- NOTE | 2016-12-28 05:46 | NUR ---
MIGRAINE HEADACHE-GAVE MORPHINE SULFATE 2MG IVP -Pt is c/o migraine headache sharp 10 out 10.
[2016-12-28] MEDS ORDERED: MORPHINE 2 MG/ML INJ. SYRINGE ONE (05:51)
--- NOTE | 2016-12-28 05:51 | NUR ---
VOMITED -Pt vomited 100ml solid emesis. Gave Zofran 4MG IVP. Call light w/in reach. Continue to monitor pt.
--- NOTE | 2016-12-28 05:55 | NUR ---
OBSTETRICAL TECH NARCISO TOOK PT FOR CT HEAD/BRAIN W/OUT CONTRAST VIA WHEELCHAIR. PT'S CONDITION STABLE.
--- NOTE | 2016-12-28 06:08 | NUR ---
RETURNED FROM CT HEAD/BRAIN W/O CONTRAST/ PT IS STILL C/O MIGRAINE HEADACHE. -PT STATED,''IT IS STILL NOT RELIEVE. MY HEADACHE IS STILL NOT THERE.'' -WILL FLOR GRADY.
--- NOTE | 2016-12-28 06:13 | NUR ---
paged paged for Dr Lenz, dialed . s/w Ondina.
--- NOTE | 2016-12-28 06:48 | NUR ---
CLOSING NOTES; -Pt is resting. Pt is complaining of migraine headache. Informed pt that still waiting for MD to return callback. Still Saline elvin of left a/c #22. Portacat-lenore cdi. All safety measures in place. Call light /win reach. Will endorse oncoming nurse to continue care.
--- NOTE | 2016-12-28 06:52 | NUR ---
2nd page Paged for Dr. Lenz ([phone]), s/w Ondina
[2016-12-28] MEDS ORDERED: KETOROLAC TROMETHAMINE 15 MG VIAL IVP ONE (07:00)
--- NOTE | 2016-12-28 07:01 | NUR ---
NOTIFIED DR. MANE REGARDING PT IS STILL C/O MIGRAINE HEADACHE 8 OUT [address] HEAD RESULT IS NOT AVAILABLE YET. MORPHINE SULFATE 2MG IVP X1 AND GIVE TORADOL 15MG IVP X1 IF CT HEAD RESULT IS NEGATIVE.
--- NOTE | 2016-12-28 07:02 | NUR ---
CALLED COMPUTER TECHNOLOGIST KIN TO ASK FOR A CT HEAD RESULT. -HE STATED,''NO RADIOLOGIST UNTIL 0800.'' WILL ENDORSE TO ONCOMING NURSE TO FOLLOW UP WITH A RESULT.
--- NOTE | 2016-12-28 07:10 | NUR ---
MIGRAINE HEADACHE-GAVE MORPHINE SULFATE 2MG IVP -Pt is c/o migraine headache sharp 8 out 10.
[2016-12-28 07:33] LABS: PHOSPHORUS 2.7 mg/dL (2.7-4.5)
[2016-12-28 07:39] LABS: HEMATOCRIT 29.7 % (36-48); HEMOGLOBIN 9.8 g/dL (12.0-16.0); MEAN CORPUSCULAR HEMOGLOBIN 33 pg (27-31); MEAN CORPUSCULAR HGB CONC 33 % (32-36); MEAN CORPUSCULAR VOLUME 99 fL (79.0-98.0); PLATELET COUNT (AUTO) 270 K/uL (130-430); RED BLOOD CELL COUNT(AUTO) 2.99 MIL/uL (4.2-6.2); RED CELL DISTRIBUTION WIDTH 15.8 % (9.0-15.0); WHITE BLOOD COUNT (AUTO) 15.1 K/uL (4.8-10.8)
--- NOTE | 2016-12-28 07:45 | NUR ---
INITIAL ROUNDS Received pt AAOx4, no s/s resp distress, no s/s seizure activity, c/o headache 03/30-pt stated her pain was higher earlier before she was given pain medication by previous nurse. Will turn pt's light off and close pt's door to help promote rest. Plan of care for the day reviewed with pt-pt verbalized her understanding. Noted Perma-cath to right chest wall-pt had HD yesterday. Pain management, disease process, s/s seizures, skin and safety discussed-teach back done. Contact phone number explained. Call light within reach.
[2016-12-28] MEDS ORDERED: FAMOTIDINE 20 MG TABLET PO SCH (09:00)
[2016-12-28] MEDS ORDERED: PREDNISONE 20 MG TABLET PO SCH (09:00)
[2016-12-28] MEDS ORDERED: NEPHROVITE, (FOLIC ACID/VITAMIN B COMP W-C 1 TAB) PO SCH (09:00)
[2016-12-28] MEDS ORDERED: CARVEDILOL 12.5 MG TABLET (COREG) PO SCH ×2 (09:00→21:00)
[2016-12-28] MEDS ORDERED: FOLIC ACID 1 MG TABLET PO SCH (09:00)
[2016-12-28] MEDS ORDERED: cloNIDine HCL 0.1 MG TABLET PO SCH (09:00)
[2016-12-28] MEDS ORDERED: FUROSEMIDE 40 MG TABLET PO SCH ×2 (09:00)
[2016-12-28] MEDS ORDERED: cefTRIAXone 1 GM IVPB PREMIX 50 ML IV SCH (09:30)
[2016-12-28] MEDS ORDERED: cloNIDine HCL 0.2 MG TABLET PO ONE (09:30)
[2016-12-28] MEDS ORDERED: PANTOPRAZOLE SODIUM 40 MG TAB PO ONE (10:00)
--- NOTE | 2016-12-28 10:10 | NUR ---
HEADACHE/BP/MD Pt c/o headache-pt given Toradol as ordered-noted just received results that CT Head negative. Pt just ambulated to the restroom, noted elevated heart rate and BP. Pt given due BP medications and Dr. Lenz informed of CT results and elevated BP. Will recheck BP. Lights turned off and curtain pulled to encourage rest. Pt refused breakfast-stated the headache decreases her appetite right now. Pt is drinking fluids. Call light and phone within reach.
[2016-12-28 10:13] LABS: BASOPHILS % (MANUAL) 0 % (0-2); EOSINOPHILS % (MANUAL) 0 % (0-7); LYMPHOCYTES % (MANUAL) 9 % (20-46); MONOCYTES % (MANUAL) 8 % (0-11)
--- NOTE | 2016-12-28 12:30 | NUR ---
ROUNDS Pt resting quietly with no s/s resp distress, no further c/o pain or discomfort. Pt now sitting up and eating her lunch. Needs met, call light within reach.
--- NOTE | 2016-12-28 14:05 | NUR ---
ROUNDS Pt resting quietly with no s/s resp distress, no c/o pain or discomfort. Pt given fresh ice water. Needs met, call light within reach.
[2016-12-28] MEDS ORDERED: ONDA4TAB22 PO (15:34)
[2016-12-28] MEDS ORDERED: PROP10TA10 PO (15:35)
[2016-12-28] MEDS ORDERED: DOXY100T2 PO (15:36)
[2016-12-28] MEDS ORDERED: CAT.1 PO (15:37)
[2016-12-28] MEDS ORDERED: PRO40 PO (15:38)
[2016-12-28] MEDS ORDERED: AMLO5TAB4 PO (15:38)
--- NOTE | 2016-12-28 16:25 | NUR ---
ROUNDS Pt sitting up in bed watching television-pt stated she called her sister to pick her up-she stated she can pick her up after 5 or 6pm tonight. Call light within reach.
--- NOTE | 2016-12-28 18:05 | NUR ---
PATIENT DISCHARGED Patient given medication reconciliation form and D/C instructions. Exit Care on Hypertension, Migraines, Propranolol & Doxycycline explained & provided. Patient verbalized her understanding. MD discussed with patient the results and treatment provided. Ambulatory with steady gait for discharge to home. Patient in stable condition, ID band removed, telematry removed. IV catheter removed, intact and dressing applied, no active bleeding. Rx given. Patient educated on pain management. All belongings sent with patient. Patient left floor via wheelchair to private vehicle in no distress.
[2016-12-28] MEDS ORDERED: levETIRAcetam 500 MG TABLET PO SCH (18:30)
[2016-12-28] MEDS ORDERED: PROPRANOLOL HCL 10 MG TABLET (INDERAL) PO SCH (21:00)
--- NOTE | 2016-12-30 10:40 | NUR ---
Discharge Follow Up Phone Call INSURANCE UNDERWRITER phoned patient, . Patient stated she was doing well. She filled her prescriptions but some were not covered by her insurance. The cost was small and she filled them anyway; she plans to call her insurance about this issue. Patient stated she did not make a follow up appointment with PCP Dr Quezada as she just saw her a few days ago. She will keep in touch with PCP and nephrology through dialysis. She is monitoring her BP at home as directed. Patient stated that she was very happy with the care provided to her by Dr Lenz. Dr Lenz really listened and advocated for her.
== END 2016-12-28 18:05 | disposition home or self-care (01) | DRG 199 ==
LOC: SED 19:40 → STU 23:58
DX: I16.0 Hypertensive urgency (principal); G93.41 Metabolic encephalopathy; N39.0 Urinary tract infection, site not specified; N18.6 End stage renal disease; I12.0 Hypertensive chronic kidney disease with stage 5 chronic kidney disease or end stage renal disease; G40.409 Other generalized epilepsy and epileptic syndromes, not intractable, without status epilepticus; D63.1 Anemia in chronic kidney disease; G43.909 Migraine, unspecified, not intractable, without status migrainosus; Z99.2 Dependence on renal dialysis; Z88.6 Allergy status to analgesic agent; Z79.899 Other long term (current) drug therapy
CPT/HCPCS: 36415; 70450-TC; 80053; 81000-TC; 83735-TC; 84100-TC; 84484; 85007; 85025; 85027; 85610-TC; 87081; 87086; 93005; 96374; 96375; 96376; 99285; J0360; J0696; J1200; J1885; J2270; J2405; J3490; J7030; J7050; J7512

== ENCOUNTER 2017-01-06 22:50 | Emergency (ER) | payer MEDICAID ==
[~2017-01-06] VITALS: Ht 160 cm; Wt 68.0 kg
[~2017-01-06 22:50] MED LIST changes: +AMLO5TAB4 PO; +AMLO5TAB92 PO; +CALC667T5 PO; -CYTOXIN; +DOXY100T2 PO; +FAMO20TA98 PO; +FOLI-43 PO; +MAGN250T31 PO; +NEPH PO; +ONDA4TAB22 PO; +PRO40 PO; +PROP10TA10 PO
[2017-01-06 22:55] VITALS: BP_SYST 211
--- NOTE | 2017-01-06 22:58 | NUR ---
Patient to ER bed 4 to gown for evaluation. Side rails up. Report given to OBIE MARTINEZ.
--- NOTE | 2017-01-06 23:05 | NUR ---
ER at bedside examining patient.
--- NOTE | 2017-01-06 23:07 | NUR ---
Patient is stable with father at bedside. Patient states that she has high blood pressure of 220/125 today after taking labetalol 300mg, migraine at 1630 radiating from latter-day to latter-day with nausea and vomiting. Complains of slight dizziness. Pain scale 7/10 No other compliants/injuries per patient or as noted.
[2017-01-06] MEDS ORDERED: MORPHINE 4 MG/ML INJ. SYRINGE IVP ONE (23:15)
[2017-01-06] MEDS ORDERED: ONDANSETRON HCL 4 MG/2 ML VIAL IVP ONE (23:15)
[2017-01-06] MEDS ORDERED: cloNIDine HCL 0.1 MG TABLET PO ONE (23:15)
[2017-01-06 23:28] LABS: HEMOGLOBIN 7.4 g/dL (12.0-16.0); MEAN CORPUSCULAR HEMOGLOBIN 33 pg (27-31)
[2017-01-06 23:34] LABS: HEMATOCRIT 22.1 % (36-48); MEAN CORPUSCULAR HGB CONC 34 % (32-36); MEAN CORPUSCULAR VOLUME 99 fL (79.0-98.0); PLATELET COUNT (AUTO) 146 K/uL (130-430); RED BLOOD CELL COUNT(AUTO) 2.23 MIL/uL (4.2-6.2); RED CELL DISTRIBUTION WIDTH 14.5 % (9.0-15.0); WHITE BLOOD COUNT (AUTO) 6.5 K/uL (4.8-10.8)
[2017-01-06 23:36] LABS: CALCIUM 8.6 mg/dL (8.4-11.0); CHLORIDE 105 mmol/L (98-107); CREATININE 5.75 mg/dL (0.55-1.30); GLUCOSE 86 mg/dL (70-99); SODIUM SERUM 142 mmol/L (136-145); UREA NITROGEN, BLOOD 17 mg/dL (8-21)
[2017-01-06 23:40] LABS: PROTHROMBIN TIME 10.8 SECS (9.5-12.5)
[2017-01-06 23:41] LABS: ALANINE AMINOTRANSFERASE 40 U/L (12-78); ALBUMIN 3.5 g/dL (3.4-4.8); ASPARTATE AMINOTRANSFERASE 20 U/L (10-37); TOTAL BILIRUBIN 0.6 mg/dL (0.0-1.0)
[2017-01-06 23:43] LABS: ANION GAP < 3 (5-15); GFR AFRICAN AMERICAN 11 mL/min (>90)
[2017-01-06 23:48] LABS: BAND % (MANUAL) 1 % (0-6); BASOPHILS % (MANUAL) 0 % (0-2); EOSINOPHILS % (MANUAL) 0 % (0-7); LYMPHOCYTES % (MANUAL) 15 % (20-46); MONOCYTES % (MANUAL) 9 % (0-11)
[2017-01-07 00:01] LABS: BILIRUBIN,URINE NEGATIVE (NEGATIVE); BLOOD, URINE 2+ (NEGATIVE); CLARITY/URINE SL CLOUDY (CLEAR); COLOR,URINE YELLOW (YELLOW); GLUCOSE,URINE NEGATIVE (NEGATIVE); KETONES,URINE NEGATIVE (NEGATIVE); LEUKOCYTE ESTERASE ,URINE NEGATIVE (NEGATIVE); NITRITE, URINE NEGATIVE (NEGATIVE); PH,URINE 8.5 (5.0-8.0); PROTEIN URINE 3+ (NEGATIVE); UROBILINOGEN,URINE 0.2 (0.2-1.0)
[2017-01-07 00:05] LABS: BACTERIA,URINE MODERATE /HPF (None Seen)
[2017-01-07 00:06] LABS: MUCUS,URINE None Seen /LPF (None Seen)
--- NOTE | 2017-01-07 00:09 | NUR ---
Patient at stable in bed. States she no longer has a migraine. Pain 11/28
[2017-01-07] MEDS ORDERED: cloNIDine HCL 0.1 MG TABLET PO ONE ×2 (00:30→01:00)
[2017-01-07] MEDS ORDERED: MORPHINE 4 MG/ML INJ. SYRINGE IVP ONE (01:00)
--- NOTE | 2017-01-07 01:30 | NUR ---
Blood pressure is 213/121. Patient refused to admitted. MD Gusman aware of blood pressure. Ok to discharge.
[2017-01-07 01:47] VITALS: BP_SYST 213
--- NOTE | 2017-01-07 01:47 | NUR ---
Patient given written and verbal discharge instructions and verbalizes understanding. ER MD discussed with patient the results and treatment provided. Patient in stable condition. ID arm band removed. IV catheter removed intact and dressing applied, no active bleeding. Rx of tylenol and zofran given. Patient educated on pain management and to follow up with PMD today. Pain Scale 0/10 Dr. Gusman aware of blood pressure Opportunity for questions provided and answered.
== END 2017-01-07 01:47 | disposition home or self-care (01) ==
LOC: SED 22:50
DX: G43.909 Migraine, unspecified, not intractable, without status migrainosus (principal); D64.9 Anemia, unspecified; I12.0 Hypertensive chronic kidney disease with stage 5 chronic kidney disease or end stage renal disease; N18.6 End stage renal disease; Z99.2 Dependence on renal dialysis; Z88.6 Allergy status to analgesic agent; Z88.5 Allergy status to narcotic agent
CPT/HCPCS: 36415; 80053; 81000; 85007; 85027; 85610; 85730; 87086; 96374; 96375; 96376; 99284; J2270 ×2; J2405

== ENCOUNTER 2017-01-08 17:34 | Inpatient (IN) | payer MEDICAID ==
[~2017-01-08] VITALS: Ht 160 cm; Wt 66.4 kg
[2017-01-08 17:59] VITALS: BP_SYST 160
[2017-01-08 18:37] LABS: HEMATOCRIT 23.2 % (36-48); HEMOGLOBIN 7.8 g/dL (12.0-16.0); MEAN CORPUSCULAR HEMOGLOBIN 33 pg (27-31); MEAN CORPUSCULAR HGB CONC 34 % (32-36); MEAN CORPUSCULAR VOLUME 99 fL (79.0-98.0); PLATELET COUNT (AUTO) 137 K/uL (130-430); RED BLOOD CELL COUNT(AUTO) 2.35 MIL/uL (4.2-6.2); RED CELL DISTRIBUTION WIDTH 14.5 % (9.0-15.0); WHITE BLOOD COUNT (AUTO) 7.4 K/uL (4.8-10.8)
[2017-01-08 18:45] LABS: CALCIUM 9.3 mg/dL (8.4-11.0); POTASSIUM 4.8 mmol/L (3.5-5.1)
[2017-01-08 18:50] LABS: ALBUMIN 3.5 g/dL (3.4-4.8)
[2017-01-08 19:02] LABS: CREATININE 10.73 mg/dL (0.55-1.30)
[2017-01-08 19:12] LABS: ATYPICAL LYMPHOCYTES % 0 % (0-0); BAND % (MANUAL) 2 % (0-6); BASOPHILS % (MANUAL) 0 % (0-2); EOSINOPHILS % (MANUAL) 0 % (0-7); LYMPHOCYTES % (MANUAL) 10 % (20-46); MONOCYTES % (MANUAL) 8 % (0-11)
[2017-01-08] MEDS ORDERED: MORPHINE 4 MG/ML INJ. SYRINGE IVP ONE (20:40)
[2017-01-08] MEDS ORDERED: hydrALAZINE HCL 20 MG/ML VIAL IVP ONE ×2 (20:45→23:00)
[2017-01-08] MEDS ORDERED: ENALAPRILAT DIHYDRATE 1.25 MG/ML VIAL IVP ONE ×2 (20:45→23:00)
[2017-01-08] MEDS ORDERED: METOPROLOL TARTRATE 5 MG/5 ML VIAL IVP ONE (22:30)
[2017-01-09] VITALS (22 sets, daily range): BP systolic 122–209
[2017-01-09] MEDS: ESMOLOL HCL/SOD CL 250 ML IV PRN ×7 (00:29→22:32)
[2017-01-09] MEDS ORDERED: MORPHINE 2 MG/ML INJ. SYRINGE IVP PRN (01:00)
[2017-01-09] MEDS ORDERED: LABE200T28 PO (03:50)
[2017-01-09] MEDS: MORPHINE 2 MG/ML INJ. SYRINGE IVP PRN ×2 (05:22→20:53)
[2017-01-09 06:29] LABS: ALBUMIN 3.1 g/dL (3.4-4.8); CALCIUM 9.1 mg/dL (8.4-11.0); POTASSIUM 5.4 mmol/L (3.5-5.1); TOTAL BILIRUBIN 0.8 mg/dL (0.0-1.0); TOTAL PROTEIN, SERUM 5.9 g/dL (6.4-8.3)
[2017-01-09 06:50] LABS: BASOPHILS % (AUTO) 0.1 % (0.0-2.0); EOSINOPHILS # (AUTO) 0.1 K/uL (0.0-0.4); EOSINOPHILS % (AUTO) 0.4 % (0.0-4.0); HEMATOCRIT 26.9 % (36-48); HEMOGLOBIN 8.4 g/dL (12.0-16.0); LYMPHOCYTES # (AUTO) 3.7 K/uL (1.0-5.5); LYMPHOCYTES % (AUTO) 22.5 % (20.5-51.5); MEAN CORPUSCULAR HEMOGLOBIN 32 pg (27-31); MEAN CORPUSCULAR HGB CONC 31 % (32-36); MEAN CORPUSCULAR VOLUME 103 fL (79.0-98.0); MONOCYTES # (AUTO) 1.6 K/uL (0.0-1.0); MONOCYTES % (AUTO) 9.8 % (1.7-9.3); NEUTROPHILS % (AUTO) 67.2 % (40.0-70.0); PLATELET COUNT (AUTO) 158 K/uL (130-430); RED BLOOD CELL COUNT(AUTO) 2.62 MIL/uL (4.2-6.2); RED CELL DISTRIBUTION WIDTH 15.5 % (9.0-15.0); WHITE BLOOD COUNT (AUTO) 16.4 K/uL (4.8-10.8)
[2017-01-09 06:51] LABS: CREATININE 12.73 mg/dL (0.55-1.30)
[2017-01-09] MEDS ORDERED: LORazepam 2 MG/ML VIAL IVP PRN (07:00)
[2017-01-09] MEDS ORDERED: cloNIDine HCL 0.1 MG/24 HR PATCH.TDWK TD SCH (09:00)
[2017-01-09] MEDS ORDERED: CARVEDILOL 12.5 MG TABLET (COREG) PO SCH (16:00)
[2017-01-09] MEDS ORDERED: cloNIDine HCL 0.1 MG TABLET PO ONE (16:00)
[2017-01-09] MEDS ORDERED: CARVEDILOL 12.5 MG TABLET (COREG) PO ONE (16:00)
[2017-01-09] MEDS ORDERED: COMMUNICATION ORDER XX ONE (16:00)
[2017-01-09] MEDS ORDERED: amLODIPine BESYLATE 10 MG TABLET PO ONE (16:00)
[2017-01-09] MEDS: DIVALPROEX SODIUM 500 MG TAB.SR.24H (DEPAKOTE ER) PO ONE ×2 (20:10→20:44)
[2017-01-09] MEDS: NIFEDIPINE 30 MG TAB.ER.24 PO SCH (20:14)
[2017-01-09] MEDS: CARVEDILOL 12.5 MG TABLET (COREG) PO SCH (20:15)
[2017-01-09] MEDS: cloNIDine HCL 0.2 MG TABLET PO SCH (20:42)
[2017-01-09] MEDS: DIVALPROEX SODIUM 500 MG TAB.SR.24H (DEPAKOTE ER) PO SCH (20:44)
[2017-01-09] MEDS: ONDANSETRON HCL 4 MG/2 ML VIAL IVP PRN (20:54)
[2017-01-10] VITALS (14 sets, daily range): BP systolic 107–136
[2017-01-10 06:15] LABS: HEMOGLOBIN 7.6 g/dL (12.0-16.0); MEAN CORPUSCULAR HEMOGLOBIN 33 pg (27-31); MEAN CORPUSCULAR HGB CONC 33 % (32-36); RED CELL DISTRIBUTION WIDTH 15.1 % (9.0-15.0)
[2017-01-10] MEDS: ONDANSETRON HCL 4 MG/2 ML VIAL IVP PRN (06:18)
[2017-01-10 06:31] LABS: CALCIUM 7.6 mg/dL (8.4-11.0)
[2017-01-10 07:22] LABS: CREATININE 8.07 mg/dL (0.55-1.30)
[2017-01-10 07:44] LABS: BASOPHILS % (AUTO) 0.4 % (0.0-2.0); EOSINOPHILS % (AUTO) 0.8 % (0.0-4.0); LYMPHOCYTES # (AUTO) 1.2 K/uL (1.0-5.5); LYMPHOCYTES % (AUTO) 17.9 % (20.5-51.5); NEUTROPHILS # (AUTO) 4.6 K/uL (1.8-7.7); NEUTROPHILS % (AUTO) 70.9 % (40.0-70.0)
[2017-01-10 07:45] LABS: EOSINOPHILS # (AUTO) 0.1 K/uL (0.0-0.4); HEMATOCRIT 23.1 % (36-48); MEAN CORPUSCULAR VOLUME 101 fL (79.0-98.0); MONOCYTES # (AUTO) 0.7 K/uL (0.0-1.0); PLATELET COUNT (AUTO) 131 K/uL (130-430); RED BLOOD CELL COUNT(AUTO) 2.29 MIL/uL (4.2-6.2); WHITE BLOOD COUNT (AUTO) 6.6 K/uL (4.8-10.8)
[2017-01-10] MEDS: MORPHINE 2 MG/ML INJ. SYRINGE IVP PRN (09:00)
[2017-01-10] MEDS: CARVEDILOL 12.5 MG TABLET (COREG) PO SCH (09:00)
[2017-01-10] MEDS: cloNIDine HCL 0.2 MG TABLET PO SCH ×3 (09:01→21:02)
[2017-01-10] MEDS: NIFEDIPINE 30 MG TAB.ER.24 PO SCH ×3 (09:01→21:02)
[2017-01-10] MEDS ORDERED: CARVEDILOL 12.5 MG TABLET (COREG) PO ONE (10:45)
[2017-01-10] MEDS ORDERED: hydrALAZINE HCL 25 MG TABLET PO PRN (14:00)
[2017-01-10] MEDS ORDERED: EPOETIN ALFA 4,000 UNITS/ML VIAL SUBCUT SCH (17:00)
[2017-01-10] MEDS: CARVEDILOL 25 MG TABLET (COREG) PO SCH (21:01)
[2017-01-10] MEDS: DIVALPROEX SODIUM 500 MG TAB.SR.24H (DEPAKOTE ER) PO SCH (21:01)
[2017-01-11 00:45] VITALS: BP_SYST 104
[2017-01-11 04:40] VITALS: BP_SYST 112
[2017-01-11 06:51] LABS: MEAN CORPUSCULAR HEMOGLOBIN 33 pg (27-31); MEAN CORPUSCULAR HGB CONC 34 % (32-36); PLATELET COUNT (AUTO) 124 K/uL (130-430); RED CELL DISTRIBUTION WIDTH 14.3 % (9.0-15.0)
[2017-01-11 07:16] LABS: RED BLOOD CELL COUNT(AUTO) 2.07 MIL/uL (4.2-6.2)
[2017-01-11 07:17] LABS: HEMATOCRIT 20.2 % (36-48); HEMOGLOBIN 6.8 g/dL (12.0-16.0); MEAN CORPUSCULAR VOLUME 98 fL (79.0-98.0)
[2017-01-11 07:19] LABS: ALBUMIN 2.6 g/dL (3.4-4.8); CALCIUM 8.1 mg/dL (8.4-11.0); POTASSIUM 4.3 mmol/L (3.5-5.1); TOTAL BILIRUBIN 0.5 mg/dL (0.0-1.0); TOTAL PROTEIN, SERUM 5.2 g/dL (6.4-8.3)
[2017-01-11 07:40] VITALS: BP_SYST 123
[2017-01-11 07:41] LABS: CREATININE 11.65 mg/dL (0.55-1.30)
[2017-01-11 08:20] LABS: IRON (SERUM) 43 mcg/dL (37-145); TOTAL IRON BIND. CAPACITY 144 ug/dL (250-450)
[2017-01-11] MEDS: cloNIDine HCL 0.2 MG TABLET PO SCH ×2 (08:51→21:49)
[2017-01-11] MEDS: NIFEDIPINE 30 MG TAB.ER.24 PO SCH ×2 (08:51→21:49)
[2017-01-11] MEDS: CARVEDILOL 25 MG TABLET (COREG) PO SCH ×2 (08:51→21:48)
[2017-01-11 09:28] LABS: BAND % (MANUAL) 1 % (0-6); BASOPHILS % (MANUAL) 0 % (0-2); EOSINOPHILS % (MANUAL) 3 % (0-7); LYMPHOCYTES % (MANUAL) 26 % (20-46); MONOCYTES % (MANUAL) 11 % (0-11)
[2017-01-11 11:35] VITALS: BP_SYST 119
[2017-01-11 15:39] VITALS: BP_SYST 107
[2017-01-11 20:00] VITALS: BP_SYST 139
[2017-01-11] MEDS: DIVALPROEX SODIUM 500 MG TAB.SR.24H (DEPAKOTE ER) PO SCH (21:49)
[2017-01-12 00:52] VITALS: BP_SYST 131
[2017-01-12 05:07] VITALS: BP_SYST 143
[2017-01-12 08:49] VITALS: BP_SYST 137
[2017-01-12] MEDS: cloNIDine HCL 0.2 MG TABLET PO SCH (08:51)
[2017-01-12] MEDS: NIFEDIPINE 30 MG TAB.ER.24 PO SCH (08:51)
[2017-01-12] MEDS: CARVEDILOL 25 MG TABLET (COREG) PO SCH (08:52)
[2017-01-12 10:41] LABS: HEMATOCRIT 28.2 % (36-48); HEMOGLOBIN 9.6 g/dL (12.0-16.0); MEAN CORPUSCULAR HEMOGLOBIN 33 pg (27-31); MEAN CORPUSCULAR HGB CONC 34 % (32-36); MEAN CORPUSCULAR VOLUME 97 fL (79.0-98.0); PLATELET COUNT (AUTO) 133 K/uL (130-430); RED BLOOD CELL COUNT(AUTO) 2.91 MIL/uL (4.2-6.2); RED CELL DISTRIBUTION WIDTH 14.6 % (9.0-15.0)
[2017-01-12 11:03] LABS: ATYPICAL LYMPHOCYTES % 0 % (0-0); BAND % (MANUAL) 0 % (0-6); BASOPHILS % (MANUAL) 0 % (0-2); EOSINOPHILS % (MANUAL) 2 % (0-7); LYMPHOCYTES % (MANUAL) 25 % (20-46); MONOCYTES % (MANUAL) 9 % (0-11)
[2017-01-12 12:00] VITALS: BP_SYST 114
[2017-01-12 12:45] VITALS: BP_SYST 122
[2017-01-12 15:34] VITALS: BP_SYST 122
[2017-01-12] MEDS: ONDANSETRON HCL 4 MG/2 ML VIAL IVP PRN (15:59)
== END 2017-01-12 16:50 | disposition home or self-care (01) | DRG 460 ==
LOC: SED 17:34 → SIC 01-09 00:52 → STU 01-10 10:35
PROVIDERS: ADMIT Internal Medicine Hospice and Palliative Medicine; ATTEND Internal Medicine Hospice and Palliative Medicine
PROC: 5A1D00Z (ICD-10-PCS; principal; 2017-01-09)
PROC: 30233N1 Transfusion of Nonautologous Red Blood Cells into Peripheral Vein, Percutaneous Approach (ICD-10-PCS; 2017-01-09)
DX: I12.0 Hypertensive chronic kidney disease with stage 5 chronic kidney disease or end stage renal disease (principal); G93.49 Other encephalopathy; N18.6 End stage renal disease; G43.909 Migraine, unspecified, not intractable, without status migrainosus; G40.909 Epilepsy, unspecified, not intractable, without status epilepticus; D64.9 Anemia, unspecified; Z99.2 Dependence on renal dialysis; Z79.899 Other long term (current) drug therapy; Z88.6 Allergy status to analgesic agent
CPT/HCPCS: 36415; 70450-TC; 80048; 80053; 83540-TC; 83550-TC; 83605; 83880; 84484; 85007; 85025; 85027; 85610-TC; 85730-TC; 86886; 86900; 86901; 86920; 87040-TC; 87081; 90935; 96374; 96375; 99291; J0360; J0885; J2270; J2405; J3490; J7040; J7050; P9021

== ENCOUNTER 2017-01-19 17:37 | Emergency (ER) | payer MEDICAID ==
[~2017-01-19 17:37] MED LIST changes: +CYTOXIN; +LABE200T28 PO
[2017-01-19 17:40] VITALS: BP 161/117; PULSE 109; RESP 18; TEMP 97.2; O2SAT 100
--- NOTE | 2017-01-19 19:12 | NUR ---
Patient to ER bed 5 to gown for evaluation. Side rails up. Report given to OBIE MARTINEZ.
--- NOTE | 2017-01-19 19:20 | NUR ---
Pt brought in by father in stable condition. Pt c/o abd pain 8/ x1 wk. Pt stated that she has been +n/v and now feels like her stomach "is twisting inside". Pt states that she has dialysis on and Thursday. Pt stated that she was recently released from [facility] on 01/12 and was discharge w/ abd pain. Pt has hx of htn, ESRD. -sob -chest pain
[2017-01-19] MEDS ORDERED: NACL 0.9% 1,000 ML IV ONE (19:30)
[2017-01-19] MEDS ORDERED: PROCHLORPERAZINE EDISYLATE 10 MG/2 ML VIAL IVP ONE (19:30)
[2017-01-19] MEDS ORDERED: KETOROLAC TROMETHAMINE 30 MG VIAL IVP ONE (19:30)
[2017-01-19] MEDS ORDERED: ONDANSETRON HCL 4 MG/2 ML VIAL IVP ONE (19:30)
--- NOTE | 2017-01-19 19:50 | NUR ---
ER Dr. Sethi at bedside examining patient.
[2017-01-19 20:01] LABS: BASOPHILS % (AUTO) 0.3 % (0.0-2.0); EOSINOPHILS # (AUTO) 0.1 K/uL (0.0-0.4); HEMATOCRIT 26.6 % (36-48); HEMOGLOBIN 8.8 g/dL (12.0-16.0); LYMPHOCYTES % (AUTO) 17.1 % (20.5-51.5); MEAN CORPUSCULAR HEMOGLOBIN 31 pg (27-31); MEAN CORPUSCULAR HGB CONC 33 % (32-36); MEAN CORPUSCULAR VOLUME 95 fL (79.0-98.0); MONOCYTES # (AUTO) 0.7 K/uL (0.0-1.0); MONOCYTES % (AUTO) 11.7 % (1.7-9.3); NEUTROPHILS # (AUTO) 4.3 K/uL (1.8-7.7); NEUTROPHILS % (AUTO) 69.9 % (40.0-70.0); PLATELET COUNT (AUTO) 55 K/uL (130-430); RED BLOOD CELL COUNT(AUTO) 2.81 MIL/uL (4.2-6.2); RED CELL DISTRIBUTION WIDTH 14.7 % (9.0-15.0); WHITE BLOOD COUNT (AUTO) 6.1 K/uL (4.8-10.8)
[2017-01-19 20:14] LABS: PROTHROMBIN TIME 10.6 SECS (9.5-12.5); TOTAL BILIRUBIN 0.5 mg/dL (0.0-1.0); TOTAL PROTEIN, SERUM 5.9 g/dL (6.4-8.3)
[2017-01-19 20:20] LABS: CREATININE 11.17 mg/dL (0.55-1.30)
[2017-01-19 20:58] LABS: BILIRUBIN,URINE 1+ (NEGATIVE); BLOOD, URINE 3+ (NEGATIVE); CLARITY/URINE HAZY (CLEAR); COLOR,URINE YELLOW (YELLOW); GLUCOSE,URINE NEGATIVE (NEGATIVE); KETONES,URINE 1+ (NEGATIVE); LEUKOCYTE ESTERASE ,URINE NEGATIVE (NEGATIVE); NITRITE, URINE NEGATIVE (NEGATIVE); PH,URINE 8.5 (5.0-8.0); PROTEIN URINE 3+ (NEGATIVE); UROBILINOGEN,URINE 0.2 (0.2-1.0)
[2017-01-19 21:05] LABS: BACTERIA,URINE MODERATE /HPF (None Seen)
[2017-01-19 21:06] LABS: MUCUS,URINE None Seen /LPF (None Seen)
[2017-01-19 21:54] VITALS: BP 161/117; PULSE 98; RESP 18; TEMP 97.2; O2SAT 100
--- NOTE | 2017-01-19 21:54 | NUR ---
Patient given written and verbal discharge instructions and verbalizes understanding. ER MD Sethi discussed with patient the results and treatment provided. Patient in stable condition. ID arm band removed. IV catheter removed intact and dressing applied, no active bleeding. Patient educated on pain management and to follow up with PMD. Pain Scale 0/10. Opportunity for questions provided and answered.
== END 2017-01-19 21:54 | disposition home or self-care (01) ==
LOC: SED 17:37
DX: I12.9 Hypertensive chronic kidney disease with stage 1 through stage 4 chronic kidney disease, or unspecified chronic kidney disease (principal); N18.9 Chronic kidney disease, unspecified; G43.909 Migraine, unspecified, not intractable, without status migrainosus; Z88.6 Allergy status to analgesic agent; Z88.5 Allergy status to narcotic agent; Z79.899 Other long term (current) drug therapy
CPT/HCPCS: 36415; 74176; 80053; 81000; 82150; 83690; 85025; 85610; 85730; 87086; 96361; 96374; 96375; 99285; J0780; J1885; J2405; J7030

== ENCOUNTER 2017-08-15 00:05 | Inpatient (IN) | payer MEDICAID ==
[~2017-08-15] VITALS: Ht 157.5 cm; Wt 54.9 kg
[2017-08-15] VITALS (11 sets, daily range): BP systolic 157–199
[~2017-08-15 00:05] MED LIST changes: -AMLO5TAB4 PO; -AMLO5TAB92 PO; -CARV12.548 PO; -CYTOXIN; -LABE200T28 PO; -PROP10TA10 PO
[2017-08-15 01:49] LABS: BASOPHILS # (AUTO) 0.1 K/uL (0.0-0.2); BASOPHILS % (AUTO) 1.9 % (0.0-2.0); EOSINOPHILS # (AUTO) 0.1 K/uL (0.0-0.4); EOSINOPHILS % (AUTO) 2.8 % (0.0-4.0); HEMATOCRIT 26.8 % (36-48); HEMOGLOBIN 8.8 g/dL (12.0-16.0); LYMPHOCYTES # (AUTO) 1.2 K/uL (1.0-5.5); MEAN CORPUSCULAR HEMOGLOBIN 31 pg (27-31); MEAN CORPUSCULAR HGB CONC 33 % (32-36); MEAN CORPUSCULAR VOLUME 94 fL (79.0-98.0); MONOCYTES # (AUTO) 0.6 K/uL (0.0-1.0); MONOCYTES % (AUTO) 16.3 % (1.7-9.3); NEUTROPHILS # (AUTO) 1.9 K/uL (1.8-7.7); RED BLOOD CELL COUNT(AUTO) 2.86 MIL/uL (4.2-6.2); RED CELL DISTRIBUTION WIDTH 13.9 % (9.0-15.0); WHITE BLOOD COUNT (AUTO) 3.9 K/uL (4.8-10.8)
[2017-08-15 01:56] LABS: CALCIUM 8.5 mg/dL (8.4-11.0); POTASSIUM 4.9 mmol/L (3.5-5.1)
[2017-08-15 02:00] LABS: PROTHROMBIN TIME 10.5 SECS (9.5-12.5)
[2017-08-15 02:03] LABS: TOTAL BILIRUBIN 0.3 mg/dL (0.0-1.0)
[2017-08-15 02:04] LABS: CREATININE 15.53 mg/dL (0.55-1.30)
[2017-08-15 02:10] LABS: PLATELET COUNT (AUTO) 79 K/uL (130-430)
[2017-08-15 02:12] LABS: BF APPEARANCE UNSPUN BLOODY (CLEAR); SOURCE/TYPE ,BODY FLUID PERIRONEAL PORT
[2017-08-15 02:47] LABS: BILIRUBIN,URINE NEGATIVE (NEGATIVE); BLOOD, URINE 1+ (NEGATIVE); CLARITY/URINE CLEAR (CLEAR); COLOR,URINE YELLOW (YELLOW); GLUCOSE,URINE TRACE (NEGATIVE); KETONES,URINE NEGATIVE (NEGATIVE); LEUKOCYTE ESTERASE ,URINE NEGATIVE (NEGATIVE); NITRITE, URINE NEGATIVE (NEGATIVE); PROTEIN URINE 3+ (NEGATIVE); UROBILINOGEN,URINE 0.2 (0.2-1.0)
[2017-08-15 02:54] LABS: BACTERIA,URINE FEW /HPF (None Seen); RBC,URINE 0-3 /HPF (0-3); WBC,URINE 0-3 /HPF (0-3)
[2017-08-15 03:08] LABS: BODY FLUID COLOR YELLOW (LT YELLOW); BODY FLUID TOTAL VOLUME 20 mL
[2017-08-15 03:36] LABS: RBC, BODY FLUID 554.44 /uL; WBC, BODY FLUID 51.67 /uL
[2017-08-15 03:38] LABS: NEUTROPHIL, BODY FLUID 35 %
[2017-08-15 03:39] LABS: LYMPHOCYTES, BODY FLUID 65 %
[2017-08-15] MEDS ORDERED: ACETAMINOPHEN 325 MG TABLET PO PRN (04:00)
[2017-08-15] MEDS ORDERED: cloNIDine HCL 0.1 MG TABLET PO ONE (13:45)
[2017-08-15] MEDS ORDERED: amLODIPine BESYLATE 10 MG TABLET PO ONE ×2 (13:45→14:30)
[2017-08-15] MEDS ORDERED: cloNIDine HCL 0.1 MG TABLET PO SCH (21:00)
[2017-08-15] MEDS ORDERED: amLODIPine BESYLATE 10 MG TABLET PO SCH (21:00)
[2017-08-15] MEDS: cloNIDine HCL 0.1 MG TABLET PO SCH (22:27)
[2017-08-15] MEDS: amLODIPine BESYLATE 10 MG TABLET PO SCH (22:28)
[2017-08-16 00:37] VITALS: BP_SYST 166
[2017-08-16 04:29] VITALS: BP_SYST 150
[2017-08-16 08:12] VITALS: BP_SYST 150
[2017-08-16] MEDS: amLODIPine BESYLATE 10 MG TABLET PO SCH (08:55)
[2017-08-16] MEDS: cloNIDine HCL 0.1 MG TABLET PO SCH ×2 (08:56→15:45)
[2017-08-16 12:00] VITALS: BP_SYST 158
[2017-08-16 15:58] VITALS: BP_SYST 158
[2017-08-16 16:00] VITALS: BP_SYST 151
== END 2017-08-16 16:35 | disposition home or self-care (01) | DRG 862 ==
LOC: SED 00:05 → SMU 03:49
PROVIDERS: ADMIT Internal Medicine; ATTEND Internal Medicine
PROC: 3E1M39Z Irrigation of Peritoneal Cavity using Dialysate, Percutaneous Approach (ICD-10-PCS; principal; 2017-08-15)
PROC: 5A1D70Z Performance of Urinary Filtration, Intermittent, Less than 6 Hours Per Day (ICD-10-PCS; 2017-08-15)
DX: T85.898A Other specified complication of other internal prosthetic devices, implants and grafts, initial encounter (principal); K66.1 Hemoperitoneum; N18.6 End stage renal disease; D69.6 Thrombocytopenia, unspecified; I12.0 Hypertensive chronic kidney disease with stage 5 chronic kidney disease or end stage renal disease; D63.1 Anemia in chronic kidney disease; G43.909 Migraine, unspecified, not intractable, without status migrainosus; Z88.6 Allergy status to analgesic agent; Z99.2 Dependence on renal dialysis; Z79.899 Other long term (current) drug therapy; Z79.52 Long term (current) use of systemic steroids
CPT/HCPCS: 36415; 74000-TC; 80053; 81000-TC; 82947-TC; 84157-TC; 85025; 85610-TC; 85730-TC; 86886; 86900; 86901; 87070-TC; 87081; 89051-TC; 89060-TC; 90935; 90937; 99285; J7030